=== PATIENT | male | born 1990 ===

== ENCOUNTER 2017-02-21 20:28 | Emergency (ER) | payer OTHER ==
[2017-02-21 20:34] VITALS: RESP 16; TEMP 98.2
--- NOTE | 2017-02-21 21:07 | EDPHY ---
H & P Stated Complaint: L 2nd finger lac on knife HPI/ROS: Chief complaint: Left 2nd finger laceration History of present illness: This is a 26-year-old male who presents to the emergency department for a left 2nd finger laceration. Patient was cutting food with a knife when it slipped cutting his finger. Minimal pain and bleeding. He denies abnormal coolness or paresthesias in the finger. He can still move it well. His tetanus is up-to-date. - Personal History Current Tetanus/Diphtheria Vaccine: Unsure Current Tetanus Diphtheria and Acellular Pertussis (TDAP): Unsure - Medical/Surgical History Hx Asthma: No Hx Chronic Respiratory Disease: No Hx Diabetes: No Hx Cardiac Disease: No Hx Renal Disease: No Hx Cirrhosis: No Hx Alcoholism: No Hx HIV/AIDS: No Hx Splenectomy or Spleen Trauma: No Other PMH: denies - Social History Smoking Status: Never smoked - Physical Exam Exam: General: Alert, nontoxic Skin: 0.5 cm laceration to the lateral aspect of the left 2nd finger. It approximates well. No foreign bodies appreciated on inspection. Musculoskeletal: Patient is flexing and extending his left 2nd finger in the DIP, PIP and MCP joint well. Vascular: Capillary refill brisk in the left 2nd finger. Neurologic: Sensation intact in left 2nd finger using light touch and two- point discrimination. Constitutional: Initial Vital Signs Temperature (C) 36.8 C 02/21/17 20:30 Heart Rate 67 02/21/17 20:30 Respiratory Rate 16 02/21/17 20:30 Blood Pressure 141/87 H 02/21/17 20:30 O2 Sat (%) 97 02/21/17 20:30 O2 Delivery Mode Room Air Allergies/Adverse Reactions: No Known Allergies Allergy (Unverified 02/21/17 20:33) Home Medications: Medication Instructions Recorded NK [No Known Home Meds] 02/21/17 Medical Decision Making Procedures: Procedure: Laceration repair. Verbal consent was obtained from the patient. The 0.5 cm laceration on the left 2nd finger was anesthetized in the usual fashion. The wound was irrigated , draped and explored to its base with a gloved finger. There were no deep structures involved. No tendon injury was identified. The wound was repaired with 5 0 Prolene, 3 simple interrupted sutures. The wound repair was simple. The procedure was performed by myself. ED Course/Re-evaluation: Patient seen under the supervision of my secondary supervising physician Dr. Ronald Abarca. Patient presents to the emergency department for a laceration to his left 2nd finger. His finger is neurovascularly intact. He has good musculoskeletal control. His tetanus is already up-to-date. Wound is clean, sutures, dressed. He is discharged home. Home care is discussed. Asked to follow up with a hand doctor for recheck. Return precautions are given. Patient voiced understanding and agreement with plan. Departure - Departure Disposition: Home, Routine, Self-Care Clinical Impression: Finger laceration Qualifiers: Encounter type: initial encounter Qualified Code(s): S61.219A - Laceration without foreign body of unspecified finger without damage to nail, initial encounter Condition: Good Instructions: Care For Your Stitches (ED), Finger Laceration (ED), Acute Wounds (ED) Additional Instructions: Follow-up with a hand doctor for recheck Stitches to be removed in 5-7 days If symptoms worsen or new symptoms develop return to the emergency room for recheck Referrals: NONE *PRIMARY CARE P,. [Primary Care Provider] - As per Instructions Teresa Zamora MD [Medical Doctor] - As per Instructions
[2017-02-21 21:27] VITALS: BP 118/79; PULSE 69; O2SAT 94
== END 2017-02-21 21:26 | disposition home or self-care (01) ==
PROC: 0HQGXZZ Repair Left Hand Skin, External Approach (ICD-10-PCS; principal; 2017-02-21)
DX: S61.211A Laceration without foreign body of left index finger without damage to nail, initial encounter (principal); W26.0XXA Contact with knife, initial encounter; Y99.8 Other external cause status; Y93.89 Activity, other specified